=== PATIENT | female | born 1960 | race Caucasian/White ===

== ENCOUNTER 2016-05-28 09:25 | Emergency (ER) | payer OTHER ==
[~2016-05-28] VITALS: Ht 175.3 cm; Wt 108.9 kg
[2016-05-28] MEDS ORDERED: IV NS 0.9% 1,000 ML ONE (09:34)
[2016-05-28] MEDS ORDERED: ONDANSETRON HCL/PF 4 MG/2 ML VIAL ONE (09:34)
[2016-05-28] MEDS ORDERED: IV SET PRIMARY PUMP SET 1 EA INFUS.SET MC ONE (09:34)
[2016-05-28] MEDS ORDERED: LORAZEPAM INJ 2 MG/ML VIAL ONE (09:35)
--- NOTE | 2016-05-28 09:40 | NUR ---
[id number]: ETOH WITHDRAWAL, NAUSEA, VOMITING. LAST DRINK LAST NIGHT AT 1999. NOTED ANXIOUS, SHAKING. VSS. SEEN BY MD FOR EVAL. SAFETY AND COMFORT MEASURES PROVIDED. WILL MONITOR.
[2016-05-28 09:54] LABS: BASOPHILS # (AUTO) 0.1 /CMM (0.0-0.2); BASOPHILS % (AUTO) 2.1 % (0.0-2.0); EOSINOPHILS # (AUTO) 0.3 /CMM (0.0-0.7); EOSINOPHILS % (AUTO) 5.8 % (0.0-6.0); HEMATOCRIT 38 % (33-45); HEMOGLOBIN 12.8 g/dL (11.5-14.8); LYMPHOCYTES % (AUTO) 17.2 % (20.0-44.0); MEAN CORPUSCULAR HEMOGLOBIN 34 PG (26.0-33.0); MEAN CORPUSCULAR HGB CONC 34 g/dl (31.0-36.0); MEAN CORPUSCULAR VOLUME 99 fL (82-100); MONOCYTES # (AUTO) 0.4 /CMM (0.1-1.30); MONOCYTES % (AUTO) 6.5 % (2.0-12.0); NEUTROPHILS # (AUTO) 3.9 /CMM (1.8-8.9); NEUTROPHILS % (AUTO) 68.4 % (43.0-81.0); PLATELET COUNT (AUTO) 234 /CMM (150-450); RDW COEFFICIENT OF VARIATION 16.3 (11.5-15.0); RED BLOOD CELL COUNT(AUTO) 3.79 MIL/uL (4.0-5.2); WHITE BLOOD COUNT (AUTO) 5.7 K/uL (4.3-11.0)
[2016-05-28] MEDS ORDERED: ONDANSETRON HCL/PF 4 MG/2 ML VIAL IVP ONE (10:00)
[2016-05-28] MEDS ORDERED: LORAZEPAM INJ 2 MG/ML VIAL IVP ONE (10:00)
[2016-05-28] MEDS ORDERED: IV NS 0.9% 1,000 ML BAG IV ONE (10:00)
--- NOTE | 2016-05-28 10:04 | NUR ---
IV ACCESS STARTED. PT MEDICATED ORDERED.
[2016-05-28 10:09] LABS: ALBUMIN 3.8 g/dL (3.4-5.0); BILIRUBIN,DIRECT 0.2 mg/dL (0.0-0.2); BILIRUBIN,TOTAL 0.9 mg/dL (0.2-1.0); CALCIUM, SERUM 8.4 mg/dL (8.5-10.1); CREATININE 0.9 mg/dL (0.6-1.3); POTASSIUM 3.5 mmol/L (3.5-5.1); TOTAL PROTEIN, SERUM 7.4 g/dL (6.4-8.2)
[2016-05-28 10:16] LABS: CANNABINOID, URINE NEGATIVE (NEGATIVE); PHENCYCLIDINE SCREEN,URINE NEGATIVE (NEGATIVE)
[2016-05-28] MEDS ORDERED: INSULIN REGULAR, HUMAN 100 UNIT/ML 10 ML VIAL SQ ONE (11:00)
[2016-05-28] MEDS ORDERED: ASPIRIN 325 MG TABLET PO ONE (11:00)
--- NOTE | 2016-05-28 11:00 | NUR ---
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 Will call back.
--- NOTE | 2016-05-28 11:40 | NUR ---
Patient discharged to home in stable condition. Written and verbal after care instructions given. Patient verbalizes understanding of instruction. Pt ambulatory with a steady gait. IV removed. Catheter intact and site benign. Pressure and 4x4 applied to site. No bleeding noted.
[2016-05-28 11:53] VITALS: BP 130/79
== END 2016-05-28 11:54 | disposition home or self-care (01) ==
LOC: ER 09:27
DX: F10.10 Alcohol abuse, uncomplicated (principal); F32.9 Major depressive disorder, single episode, unspecified; F41.9 Anxiety disorder, unspecified
CPT/HCPCS: 36415; 80048-TC; 80076-TC; 80305; 83690-TC; 85025-TC; A4606; G0480; J2060; J2405; J7030; Z7610

== ENCOUNTER 2016-09-29 16:14 | Emergency (ER) | payer OTHER ==
[~2016-09-29] VITALS: Ht 175.3 cm; Wt 99.8 kg
--- NOTE | 2016-09-29 16:14 | NUR ---
BIBRA 102 FOR ETOH, +SI PLAN IS TO OVERDOSE WITH PILLS
[2016-09-29 16:48] LABS: BASOPHILS % (AUTO) 0.6 % (0.0-2.0); EOSINOPHILS # (AUTO) 0.1 /CMM (0.0-0.7); EOSINOPHILS % (AUTO) 0.8 % (0.0-6.0); HEMATOCRIT 39 % (33-45); HEMOGLOBIN 12.9 g/dL (11.5-14.8); LYMPHOCYTES # (AUTO) 1.4 /CMM (0.8-4.8); MEAN CORPUSCULAR HEMOGLOBIN 33 PG (26.0-33.0); MEAN CORPUSCULAR HGB CONC 33 g/dl (31.0-36.0); MEAN CORPUSCULAR VOLUME 100 fL (82-100); MONOCYTES # (AUTO) 0.4 /CMM (0.1-1.30); MONOCYTES % (AUTO) 5.7 % (2.0-12.0); NEUTROPHILS # (AUTO) 4.8 /CMM (1.8-8.9); NEUTROPHILS % (AUTO) 72.9 % (43.0-81.0); PLATELET COUNT (AUTO) 325 /CMM (150-450); RDW COEFFICIENT OF VARIATION 14.1 (11.5-15.0); RED BLOOD CELL COUNT(AUTO) 3.87 MIL/uL (4.0-5.2); WHITE BLOOD COUNT (AUTO) 6.8 K/uL (4.3-11.0)
[2016-09-29 17:00] LABS: CALCIUM, SERUM 8.9 mg/dL (8.5-10.1); CREATININE 1.1 mg/dL (0.6-1.3); POTASSIUM 4.1 mmol/L (3.5-5.1)
[2016-09-29] MEDS ORDERED: LORAZEPAM INJ 2 MG/ML VIAL ONE ×2 (17:00→19:17)
[2016-09-29] MEDS: LORAZEPAM INJ 2 MG/ML VIAL IV ONE ×2 (17:04→19:23)
[2016-09-29] MEDS: IV NS 0.9% 1,000 ML BAG IV ONE (17:04)
[2016-09-29 17:06] LABS: ALBUMIN 4.3 g/dL (3.4-5.0); BILIRUBIN,DIRECT 0.3 mg/dL (0.0-0.2); BILIRUBIN,TOTAL 1.1 mg/dL (0.2-1.0); TOTAL PROTEIN, SERUM 8.7 g/dL (6.4-8.2)
[2016-09-29 17:12] LABS: SALICYLATE 2.3 mg/dL (2.8-20.0)
--- NOTE | 2016-09-29 18:24 | NUR ---
URINE SAMPLE COLLECTED SENT TO LAB
[2016-09-29 18:31] LABS: APPEARANCE,URINE Clear (CLEAR); BILIRUBIN,URINE MODERATE (NEGATIVE); BLOOD, URINE Trace-intact Ery/uL (NEGATIVE); COLOR,URINE Yellow (YELLOW); KETONES,URINE >=160 (NEGATIVE); LEUKOCYTE ESTERASE ,URINE Negative (NEGATIVE); NITRITE, URINE Negative (NEGATIVE); PH,URINE 5.5 (5.0-8.0); PROTEIN,URINE 100 mg/dl (NEGATIVE); UGLUCOSE Negative (NEGATIVE)
--- NOTE | 2016-09-29 19:30 | NUR ---
GAVE REPORT TO JOSE ALEJANDRO FOR LUIS FELIPE
--- NOTE | 2016-09-29 19:30 | NUR ---
patient is sleeping comfortably at this time, vss. breathing even and unlabored. safety measures in place.
[2016-09-29] MEDS ORDERED: CHLORDIAZEPOXIDE HCL 25 MG CAPSULE ONE (20:56)
[2016-09-29] MEDS: CHLORDIAZEPOXIDE HCL 25 MG CAPSULE PO ONE (21:00)
[2016-09-29] MEDS ORDERED: ONDANSETRON HCL/PF 4 MG/2 ML VIAL ONE (22:53)
[2016-09-29] MEDS: ONDANSETRON HCL/PF 4 MG/2 ML VIAL IV ONE (22:56)
[2016-09-29 23:04] LABS: BACTERIA,URINE None seen /HPF (None Seen); MUCUS,URINE Rare /LPF (None Seen); RBC,URINE 0-2 /HPF (0-2); SQUAMOUS EPITHELIAL CELL,UR Rare /HPF (None Seen); WBC,URINE 0-2 /HPF (0-3)
--- NOTE | 2016-09-29 23:56 | NUR ---
EVON BLOUNT AND MD JORDAN MADE AWARE OF THE VITALS
--- NOTE | 2016-09-30 01:28 | NUR ---
Spoke with Kenna and she said, patient is accepting to the [facility], address [address]. To call report, call [phone] and look for Trudy for room number. Dr Fuchs is the accepting doctor.
--- NOTE | 2016-09-30 01:38 | NUR ---
Report given to Mela BARNARD in [facility] for marita.
--- NOTE | 2016-09-30 01:38 | NUR ---
Per Trudy, patient will bed in 602-A
--- NOTE | 2016-09-30 01:46 | NUR ---
[facility] ETA 30 MINUTES
--- NOTE | 2016-09-30 02:40 | NUR ---
RECEIVED VERBAL ORDER FROM DR. JORDAN FOR LORAZEPAM 2mg IVP ONCE NOW.
[2016-09-30] MEDS ORDERED: LORAZEPAM INJ 2 MG/ML VIAL ONE (02:42)
[2016-09-30] MEDS: LORAZEPAM INJ 2 MG/ML VIAL IV ONE (02:45)
--- NOTE | 2016-09-30 02:59 | NUR ---
Report given to [facility] and patient was picked up without incident noted.
[2016-09-30 03:00] VITALS: BP 130/70
--- NOTE | 2016-09-30 03:00 | NUR ---
IV removed. Catheter intact and site benign. Pressure and 4x4 applied to site. No bleeding noted.
== END 2016-09-30 03:01 ==
LOC: ER 16:16
DX: F10.239 Alcohol dependence with withdrawal, unspecified (principal); I10 Essential (primary) hypertension; F32.9 Major depressive disorder, single episode, unspecified; R45.851 Suicidal ideations; R00.0 Tachycardia, unspecified; Z98.890 Other specified postprocedural states
CPT/HCPCS: 36415; 80048-TC; 80076-TC; 80305; 81000-TC; 85025-TC; A4606; G0480; J2060; J2405; J7030; Z7610